=== PATIENT | female | born 1965 | race Caucasian/White ===

== ENCOUNTER 2022-03-19 14:54 | Emergency (ER) | payer OTHER, SELFPAY ==
--- NOTE | ~2022-03-19 | CT_ITS ---
EXAMINATION: CT HEAD WITHOUT CONTRAST CLINICAL INFORMATION: Dizziness COMPARISON: CT head 01/14/2022 TECHNIQUE: Contiguous axial imaging was performed from the skull base to vertex without intravenous administration of contrast. Coronal and sagittal reformatted images are performed at the CT scanner. [This CT examination was performed using dose optimization techniques as appropriate, variously including the following: *Automated exposure control *Adjustment of mA and/or kV according to patient size (this includes techniques or standardized protocols for targeted exams where dose is matched to indication/reason for exam; i.e. extremities or head) *Use of iterative reconstruction technique] DLP: 603 mGy-cm. FINDINGS: There is no evidence of acute intracranial hemorrhage or territorial infarction. No abnormal mass-effect or midline shift is seen. Cheung to white matter differentiation is well preserved. No extra-axial fluid collections are identified. The ventricles are normal in size. There is no abnormal attenuation within the brain parenchyma. There is no osseous abnormality. The mastoid air cells and visualized portions of the paranasal sinuses are well-aerated. CT/CT head/brain wo IV con IMPRESSION: No acute intracranial pathology.
[2022-03-19 17:09] VITALS: BP 133/101; PULSE 98; RESP 18; TEMP 36.3; O2SAT 100; BMI 25.7
--- NOTE | 2022-03-19 17:13 | ED.GENADULT ---
HPI - General Adult General Chief complaint: General Medical <Aundrea Thomas MD - Last Filed: 03/19/22 17:29> Stated complaint: dizzy bp 187/110 <Aundrea Thomas MD - Last Filed: 03/19/22 17:29> Time Seen by Provider: 03/19/22 18:49 <Aundrea Thomas MD - Last Filed: 03/19/22 17:29> Source: patient <Eduardo Covington MD - Last Filed: 03/19/22 21:13> Mode of arrival: ambulatory <Eduardo Covington MD - Last Filed: 03/19/22 21:13> Limitations: no limitations <Eduardo Covington MD - Last Filed: 03/19/22 21:13> History of Present Illness HPI narrative: This is 56 years old female presented to the emergency department with multiple somatic complain which include lightheadedness, elevated blood pressure, she has been in multiple emergency department she visited multiple provider she was diagnosed with possible pheochromocytoma. The denies any chest pain and shortness of breath any fever vomiting. <Eduardo Covington MD - Last Filed: 03/19/22 21:13> Onset (ago): month(s) <Eduardo Covington MD - Last Filed: 03/19/22 21:13> Radiation: non-radiation <Eduardo Covington MD - Last Filed: 03/19/22 21:13> Severity: moderate <Eduardo Covington MD - Last Filed: 03/19/22 21:13> Relieving factors: none <Eduardo Covington MD - Last Filed: 03/19/22 21:13> Exacerbating factors: none <Eduardo Covington MD - Last Filed: 03/19/22 21:13> Related Data Allergies/adverse reactions: Allergies Allergy/AdvReac Type Severity Reaction Status Date / Time acetaminophen [From Percocet] Allergy Itching Verified 03/19/22 17:18 labetalol Allergy Itching Verified 03/19/22 17:18 latex Allergy Itching Verified 03/19/22 17:18 oxybutynin [From Ditropan] Allergy Itching Verified 03/19/22 17:18 oxycodone [From Percocet] Allergy Itching Verified 03/19/22 17:18 perfume Allergy Itching Verified 03/19/22 17:18 <Aundrea Thomas MD - Last Filed: 03/19/22 17:29> Review of Systems Review of Systems: Yes all other systems are reviewed and are negative <Eduardo Covington MD - Last Filed: 03/19/22 21:13> Eyes: Eyes: Reports no additional eye complaints <Eduardo Covington MD - Last Filed: 03/19/22 21:13> Cardiovascular: Cardiovascular: Reports no additional cardiovascular complaints <Eduardo Covington MD - Last Filed: 03/19/22 21:13> Respiratory: Respiratory: Reports no additional respiratory complaints <Eduardo Covington MD - Last Filed: 03/19/22 21:13> Genitourinary: Genitourinary: Reports no additional female genitourinary complaints <Eduardo Covington MD - Last Filed: 03/19/22 21:13> Endocrine: Endocrine: Reports no additional endocrine complaints <Eduardo Covington MD - Last Filed: 03/19/22 21:13> [facility] Past Medical History [facility] Narrative: She has history of chronic renal insufficiency, she has history of hypertension, she has history of anxiety <Eduardo Covington MD - Last Filed: 03/19/22 21:13> Social History Social History: Social History Advance Directives: No Advance Directives Information Provided: No <Aundrea Thomas MD - Last Filed: 03/19/22 17:29> Physical Exam ED Vital Signs: Vital Signs - 24 hr 03/19/22 17:09 03/19/22 17:20 03/19/22 17:24 Temperature 97.4 F Pulse Rate 98 89 Respiratory Rate 18 Blood Pressure 133/101 H 96/81 84/47 L Pulse Oximetry 100 Oxygen Delivery Method Room Air 03/19/22 18:44 03/19/22 19:29 Temperature 97.6 F Pulse Rate 53 Respiratory Rate 15 Blood Pressure 116/51 L 209/97 H Pulse Oximetry 100 Oxygen Delivery Method Room Air BMI result Body Mass Index 25.7 <Aundrea Thomas MD - Last Filed: 03/19/22 17:29> Vital Signs - 24 hr 12/05/22 17:09 03/19/22 17:20 03/19/22 17:24 Temperature 97.4 F Pulse Rate 98 89 Respiratory Rate 18 Blood Pressure 133/101 H 96/81 84/47 L Pulse Oximetry 100 Oxygen Delivery Method Room Air 03/19/22 18:44 03/19/22 19:29 Temperature 97.6 F Pulse Rate 53 Respiratory Rate 15 Blood Pressure 116/51 L 209/97 H Pulse Oximetry 100 Oxygen Delivery Method Room Air BMI result Body Mass Index 25.7 <Eduardo Covington MD - Last Filed: 03/19/22 21:13> Const General: cooperative <Eduardo Covington MD - Last Filed: 03/19/22 21:13> Nutritional Appearance: well nourished <Eduardo Covington MD - Last Filed: 03/19/22 21:13> HENMT Head: Yes normal to inspection <Eduardo Covington MD - Last Filed: 03/19/22 21:13> Ears: hearing grossly normal bilaterally <Eduardo Covington MD - Last Filed: 03/19/22 21:13> General nose exam: Normal external nose present <Eduardo Covington MD - Last Filed: 03/19/22 21:13> Face and sinus: Yes normal facial exam <Eduardo Covington MD - Last Filed: 03/19/22 21:13> Mouth: Normal oral and palatal mucosa present <Eduardo Covington MD - Last Filed: 03/19/22 21:13> Throat: Yes posterior oropharynx normal <Eduardo Covington MD - Last Filed: 03/19/22 21:13> Neck Neck: Yes normal visual inspection, Yes full ROM and Yes no lymphadenopathy <Eduardo Covington MD - Last Filed: 03/19/22 21:13> Thyroid: Thyroid normal <Eduardo Covington MD - Last Filed: 03/19/22 21:13> Chest Chest palpation & inspection: normal inspection of the chest <Eduardo Covington MD - Last Filed: 03/19/22 21:13> Resp Effort & Inspection: normal respiratory effort <Eduardo Covington MD - Last Filed: 03/19/22 21:13> Auscultation: clear to auscultation bilaterally <Eduardo Covington MD - Last Filed: 03/19/22 21:13> Cardio Rate: regular rate <Eduardo Covington MD - Last Filed: 03/19/22 21:13> Rhythm: regular rhythm <Eduardo Covington MD - Last Filed: 03/19/22 21:13> GI Inspection: Yes normal to inspection <Eduardo Covington MD - Last Filed: 03/19/22 21:13> Palpation (GI): Soft to palpation, not firm and nontender <Eduardo Covington MD - Last Filed: 03/19/22 21:13> General: Yes no CVA tenderness <Eduardo Covington MD - Last Filed: 03/19/22 21:13> Back/Spine/Pelvis Back: no CVA tenderness <Eduardo Covington MD - Last Filed: 03/19/22 21:13> Skin General skin exam: no rashes or lesions noted, elasticity normal and turgor normal <Eduardo Covington MD - Last Filed: 03/19/22 21:13> Lesions: no lesions <Eduardo Covington MD - Last Filed: 03/19/22 21:13> Rashes: no rashes <Eduardo Covington MD - Last Filed: 03/19/22 21:13> Trauma: no lacerations or abrasions <Eduardo Covington MD - Last Filed: 03/19/22 21:13> Course Course Course Narrative: 56F p/w elevated BP and recently diagnosed with pheochromocytoma (Dr Harrington but not by lab test) and also has had dizziness/vision changes. Multiple symptoms. Most hospitals are in CT VS Reviewed GEN: NAD HEENT: NC/AT, EOMI/PERRLA, Ears wnl, throat nwl PULM: CTAB, no wheeze, rhonchi, rales CVS: RRR, no murmurs ABD: NT/ND Ext: warm, dry - Labs, EKG <Aundrea Thomas MD - Last Filed: 03/19/22 17:29> Reevaluation(s) Reevaluation #1: Troponin was negative a head CT was negative, EKG was within normal limit I think at this point we could discharge the patient home a blood pressure was noted above she did not take her amlodipine today, usually she takes 2.5 mg of amlodipine, I told it probably reasonable to increase the dose to 5 mg . I gave a copy of the blood tests I gave her copy of the CT patient has a primary care physician at [facility] she has a promotions coordinator she will call PCP promotions coordinator in a.m. for follow-up <Eduardo Coivngton MD - Last Filed: 03/19/22 21:13> Medications Administered Discontinued Medications Generic Name Dose Route Start Last Admin Trade Name Freq PRN Reason Stop Dose Admin Amlodipine Besylate 5 mg 03/19/22 20:23 03/19/22 20:46 Amlodipine Besylate 5 Mg Tablet PO 03/19/22 20:24 5 mg ONCE ONE Administration Protocol Sodium Chloride 1,000 mls @ 999 mls/hr 03/19/22 17:30 03/19/22 17:59 Ns IV 03/19/22 18:30 999 mls/hr .Q1H1M HYACINTH Administration <Aundrea Thomas MD - Last Filed: 03/19/22 17:29> Medications Administered Discontinued Medications Generic Name Dose Route Start Last Admin Trade Name Freq PRN Reason Stop Dose Admin Amlodipine Besylate 5 mg 03/19/22 20:23 03/19/22 20:46 Amlodipine Besylate 5 Mg Tablet PO 03/19/22 20:24 5 mg ONCE ONE Administration Protocol Sodium Chloride 1,000 mls @ 999 mls/hr 03/19/22 17:30 03/19/22 17:59 Ns IV 03/19/22 18:30 999 mls/hr .Q1H1M HYACINTH Administration <Eduardo Covington MD - Last Filed: 03/19/22 21:13> Medical Decision Making Medical Decision Making Independent interpretation of EKG, rhythm strip, radiology study: Independent interp EKG,rhythm strip, radiology study (Normal sinus rhythm rate [address]-T changes) My interpretation is I personally reviewed the EKG normal sinus rhythm rate [address]-T changes <Eduardo Covington MD - Last Filed: 03/19/22 21:13> Independent historian (e.g., spouse, EMS, friend): Independent historian (e.g., spouse, EMS, friend) (significative other) <Eduardo Covington MD - Last Filed: 03/19/22 21:13> Discharge Plan Discharge Clinical Impression: Hypertension, Dizziness <Aundrea Thomas MD - Last Filed: 03/19/22 17:29> Patient Disposition: Home, Self-Care <Aundrea Thomas MD - Last Filed: 03/19/22 17:29> Instructions: Hypertension (ED), Dizziness (ED) <Aundrea Thomas MD - Last Filed: 03/19/22 17:29> Additional Instructions: You should probably increase the amlodipine to 5 mg daily, make sure you follow-up with your primary care physician and promotions coordinator: call in AM and make an appointment <Aundrea Thomas MD - Last Filed: 03/19/22 17:29> Referrals: Physician,Nonstaff [Primary Care Provider] - 2 days <Aundrea Thomas MD - Last Filed: 03/19/22 17:29>
[2022-03-19 17:20] VITALS: BP 96/81; PULSE 89
[2022-03-19 17:24] VITALS: BP 84/47
[2022-03-19] MEDS: 0.9 % Sodium Chloride 1,000 ML 999 ML IV (17:59)
[2022-03-19 18:00] LABS: MANUAL DIFF FLAG NO
[2022-03-19 18:03] LABS: Basophils Absolute Auto 0.1 X10*3/uL (0.0-0.2); Basophils Percent Auto 1.1 % (0-2); Eosinophils Absolute Auto 0.4 X10*3/uL (0.0-0.4); Eosinophils Percent Auto 3.9 % (0-4); Hematocrit 43.8 % (37.0-47.0); Hemoglobin 14.4 g/dl (12.0-16.0); Imm Gran Abs Auto 0.02 X10*3/uL (0.00-0.03); Imm Gran Pct Auto 0.2 % (0.0-0.4); Lymphocytes Absolute Auto 3.9 X10*3/uL (1.2-4.9); Lymphocytes Percent Auto 40.5 % (20-40); Mean Corpuscular HGB Conc 32.9 g/dl (31.0-35.0); Mean Corpuscular Hemoglobin 28.5 pg (27.0-33.0); Mean Corpuscular Volume 86.7 fL (80.0-98.0); Mean Platelet Volume 9.5 fL (9.4-12.3); Monocytes Absolute Auto 0.7 X10*3/uL (0.1-1.2); Monocytes Percent Auto 7.5 % (2-11); Neutrophils Absolute Auto 4.5 x10*3/uL (2.0-8.3); Neutrophils Percent Auto 46.8 % (45-73); Platelet Count 352 X10*3/uL (160-400); Red Blood Count 5.05 X10*6/uL (4.20-5.50); Red Cell Distribution Width 13.8 % (11.0-16.0); White Blood Count 9.5 X10*3/uL (4.8-10.8)
[2022-03-19 18:12] LABS: Prothrombin Time 11.7 SEC (10.0-13.1)
[2022-03-19 18:32] LABS: Troponin-I High Sensitivity 4.9 ng/L (<3.5-17.0)
[2022-03-19 18:44] VITALS: BP 116/51
[2022-03-19 18:47] LABS: Alanine Aminotransferase 18 U/L (0-31); Albumin Level 4.8 g/dL (3.5-5.0); Alkaline Phosphatase 149 U/L (39-117); Anion Gap 15 (12-20); Aspartate Amino Transferase 21 U/L (5-31); Bilirubin Total 0.5 mg/dL (0.0-1.0); Blood Urea Nitrogen 23 mg/dL (9-16); Calcium 10.5 mg/dL (8.4-10.2); Carbon Dioxide 27 mmol/L (22-29); Chloride 103 mmol/L (96-108); Creatinine Clr Calc Pharmacy 41.5; Estimated Glomerular Filt Rate 35; Glucose Random 115 mg/dL (60-115); Potassium 4.9 mmol/L (3.3-5.1); Sodium 140 mmol/L (135-145); Thyroid Stimulating Hormone 0.57 uIU/mL (0.32-4.0)
--- NOTE | 2022-03-19 19:14 | ECG_ITS ---
Test Reason : HYPERTENSION Blood Pressure : / mmHG Vent. Rate : 051 BPM Atrial Rate : 051 BPM P-R Int : 164 ms QRS Dur : 086 ms QT Int : 490 ms P-R-T Axes : 038 055 035 degrees QTc Int : 451 ms Sinus bradycardia Otherwise normal ECG No previous ECGs available Referred By: Eduardo Covington Electronically Signed By:LISA CAMERON MD
[2022-03-19 19:29] VITALS: BP 209/97; PULSE 53; RESP 15; TEMP 36.4; O2SAT 100
[2022-03-19] MEDS: amLODIPine Besylate 5 MG TABLET PO (20:46)
[2022-03-19 21:50] LABS: Appearance Urine Clear; Color Urine Yellow; Glucose Urine UA Negative (Negative); Leukocyte Esterase Urine Negative (Negative); Nitrite Urine Negative (Negative); Specific Gravity - Urine 1.015 (1.005-1.025); Urine Blood Negative (Negative); Urine Ketones Negative (Negative); Urine Protein Trace mg/dL (Neg-Trace)
[2022-03-29 13:39] LABS: Metanephrine, Free 37 pg/mL (<=57); Normetanephrines, Free 37 pg/mL (<=148); Total Metanephrine, Free 74 pg/mL (<=205)
== END 2022-03-19 21:56 | disposition home or self-care (01) ==
PROVIDERS: Student in an Organized Health Care Education/Training Program; Emergency Provider Emergency Medicine
DX: R42 Dizziness and giddiness (principal); I10 Essential (primary) hypertension; Z79.899 Other long term (current) drug therapy
CPT/HCPCS: 36415; 70450; 80053; 81003; 83835; 84443; 84484; 85025; 85610; 93005; 99284; 99285